=== PATIENT | female | born 1990 | race Caucasian/White ===

== ENCOUNTER → 2019-07-16 | Outpatient (REF) | payer OTHER, MEDICAID ==
[~2019-07-16] MED LIST: BUPR8SUB SL; GNP28TAB2 PO
== END ==
LOC: M LAB REF 13:11
PROVIDERS: ATTEND Advanced Practice Midwife
DX: Z34.83 Encounter for supervision of other normal pregnancy, third trimester (principal)

== ENCOUNTER → 2019-07-24 | Outpatient (CLI) | payer OTHER, MEDICAID | LOC: M SMT 15:44 | PROVIDERS: ATTEND Advanced Practice Midwife | DX: O09.213 Supervision of pregnancy with history of pre-term labor, third trimester (principal); Z3A.00 Weeks of gestation of pregnancy not specified ==

== ENCOUNTER 2019-08-13 23:48 | Inpatient (IN) | payer OTHER, MEDICAID ==
[~2019-08-13] VITALS: Ht 160 cm; Wt 62.6 kg
[2019-08-14] VITALS (9 sets, daily range): BP systolic 100–121; BP diastolic 52–68
[2019-08-14] MEDS ORDERED: MOM 30ML SUSPENSION UDC PO PRN (00:15)
[2019-08-14] MEDS ORDERED: DOCUSATE SODIUM 100 MG CAP PO PRN (00:15)
[2019-08-14] MEDS ORDERED: ACETAMINOPHEN TAB 650MG DOSE (2X325MG) PO PRN (00:15)
[2019-08-14] MEDS ORDERED: RHOGAM 300 MCG (1500 IU) INJ (J2790) IM SCH (00:15)
[2019-08-14] MEDS ORDERED: METHYLERGONOVINE MALEATE 0.2 MG TAB PO PRN (00:15)
[2019-08-14] MEDS ORDERED: DIBUCAINE 1% OINTMENT 30GM TOP PRN (00:15)
[2019-08-14] MEDS ORDERED: OXYTOCIN INJ 10 UNITS/ML VIAL (J2590) IM ONE (00:15)
[2019-08-14] MEDS ORDERED: IBUPROFEN 800 MG TAB PO PRN (00:15)
[2019-08-14] MEDS ORDERED: MEASLES,MUMPS,RUBELLA VACCINE INJ (MMR-II) (90707) SC SCH (00:15)
[2019-08-14] MEDS ORDERED: ANUSOL HC CREAM 30GM TOP PRN (00:15)
[2019-08-14] MEDS ORDERED: IBUPROFEN 600 MG TAB PO PRN (00:15)
[2019-08-14] MEDS ORDERED: ACETAMINOPHEN 500 MG TAB PO PRN (00:15)
[2019-08-14] MEDS ORDERED: GNP28TAB2 PO (02:11)
[2019-08-14] MEDS ORDERED: BUPR8SUB SL (02:15)
--- NOTE | 2019-08-14 04:38 | HPE ---
DATE OF ADMISSION: 08/13/2019 REASON FOR ADMISSION: Labor. HISTORY OF PRESENT ILLNESS: This patient is a 28-year-old, 6, para 3 who presents 38 weeks, 4 days estimated gestational age in active labor. She reports contractions throughout the day that have increased in intensity and frequency. She denies any vaginal bleeding or leakage. COURSE: 1. Her course has been complicated with a history of delivery at 34 weeks. 2. History of right leg deep vein thrombosis (DVT) during her last . 3. Substance abuse currently on Suboxone 8 mg three times a day. She is also late entry of care at 32 weeks. PAST MEDICAL HISTORY: 1. Substance abuse. 2. Left leg deep vein thrombosis (DVT). PAST SURGICAL HISTORY: Dilation and curettage. PAST OBSTETRICAL HISTORY: She is a 6, para 3. She has had two term vaginal deliveries and a 34-week delivery, which was complicated by her placenta abruption, as well as a left leg deep vein thrombosis (DVT). Her medications includes Suboxone, heparin. ALLERGIES: She has no known drug allergies. SOCIAL HISTORY: She is a current smoker. She denies any illicit drug use. PHYSICAL EXAMINATION: Her vital signs are stable. She is afebrile. General appearance: Well appearing, appears uncomfortable, contractions. Cervical exam: She was completely dilated and ruptured during examination to +1 station. LABORATORY: Her blood type O+, antibody screen is negative. Rubella is immune. RPR is nonreactive. Hepatitis surface antigen is negative. HIV is negative. Hepatitis C nonreactive. Chlamydia and gonorrhea screens were negative. She had a normal one hour glucose. She is Group B streptococcus (GBS) negative. ASSESSMENT: This patient is a 28-year-old 6, para 3, at 38 weeks, 4 days estimated gestational age in active labor. PLAN: 1. Admit to labor and delivery. 2. Anticipate precipitous vaginal delivery.
--- NOTE | 2019-08-14 04:44 | DN ---
DATE: 08/13/2019 TIME OF : 2349 GENDER: Male. APGARS: 8 and 9. WEIGHT: 6 pounds 4 ounces or 2840 grams. LACERATIONS: None. ESTIMATED BLOOD LOSS: 300 mL COUNTS: Five laparotomy sponges accounted for prior to and after delivery. ANESTHESIA: None. DELIVERY NOTE: On August 13, 2019 at 2349, this patient 28-year-old 6, now para 4, had a spontaneous vaginal delivery of a live born male infant, Apgars 8 and 9, weight was 2840 grams, 6 pounds 4 ounces. Head was delivered occiput anterior (OA) over intact perineum. There was a nuchal cord, which was manually reduced followed by delivery of shoulder and corpus. was handed to mom with a good cry. Cord was clamped x2, was cut by the father of baby under my direction. Placenta was then drained and delivered grossly intact. A premixed bag of 500 mL of normal saline with 30 units of Pitocin was then bolused along with uterine massage. The uterus was firm. On inspection, cervix, vagina and perineum were grossly intact and hemostatic. Mom and baby went to recovery in stable condition.
[2019-08-14] MEDS: ENOXAPARIN 40 MG/0.4 ML SYRINGE (J1650) SC SCH (06:13)
[2019-08-14] MEDS: PRENATAL VITAMINS CHEWABLE TABLET PO SCH (09:35)
[2019-08-14] MEDS: NICOTINE 14 MG/24 HR TRANSDERMAL TD SCH (09:35)
--- NOTE | 2019-08-14 11:21 | IPNPDOC ---
Text Note Date of Service The patient was seen on 08/14/19. NOTE Day 1 S/p ; complicated by suboxone use, late entry to care, precipitous delivery S: pain well controlled, lochia and bleeding decreasing, voiding spontaneously, ambulating without assistance, tolerating regular diet. Formula feeding. O: vitals stable Heart: RRR, no murmurs Lungs: CTA BL Abd: Fundus firm at U-2cm Ext: no edema, non tender, negative Delmy's bilaterally A/P: 28 yo G6 now P4. day 1 s/p . Hemodynamically stable, afebrile, good pain control. Recovering well. -Routine care and advancement. -Anticipate discharge tomorrow VS,Fishbone, I+O VS, Fishbone, I+O Vital Signs Date Time Temp Pulse Resp B/P (MAP) Pulse Ox O2 Delivery O2 Flow Rate FiO2 08/14/19 05:52 98.3 82 16 115/62 (79) 98 I&O- Last 24 Hours up to 6 AM 08/14/19 05:59 Output Total 600 ml Balance -600 ml GME ATTESTATION GME ATTESTATION My faculty preceptor for this patient encounter was physically present during the encounter and was fully available. All aspects of the patient interview, e xamination, medical decision making process, and medical care plan development were reviewed and approved by the faculty preceptor. The faculty preceptor is aware and concurs with the plan as stated in the body of this note and will attest to such by his/her cosignature. OSCAR VARMA DO Aug 14, 2019 11:21
[2019-08-15] MEDS: ENOXAPARIN 40 MG/0.4 ML SYRINGE (J1650) SC SCH (05:56)
[2019-08-15 06:00] VITALS: BP 107/65
[2019-08-15] MEDS ORDERED: INFLUENZA QUADRIVALENT PF VACCINE 0.5ML SYRINGE (90686) IM ONE (09:00)
[2019-08-15] MEDS ORDERED: ADACEL/BOOSTRIX VACCINE (DIPHTH/PERTUSS/ACELL/TETANUS)0.5ML SYR (90715) IM ONE (09:00)
[2019-08-15] MEDS: NICOTINE 14 MG/24 HR TRANSDERMAL TD SCH (09:45)
[2019-08-15] MEDS: PRENATAL VITAMINS CHEWABLE TABLET PO SCH (09:45)
== END 2019-08-15 12:15 | disposition home or self-care (01) | DRG 560 ==
LOC: M LDO 23:48 → M LDI 23:50 → UNDOADMIN 08-14 00:04 → M LDI 08-14 03:43 → M OBS 08-14 03:43
PROVIDERS: ADMIT Obstetrics & Gynecology; ATTEND Obstetrics & Gynecology
PROC: 10E0XZZ Delivery of Products of Conception, External Approach (ICD-10-PCS; principal; 2019-08-13)
DX: O99.334 Smoking (tobacco) complicating childbirth (principal); Z3A.38 38 weeks gestation of pregnancy; Z37.0 Single live birth; O62.3 Precipitate labor; O69.81X0 Labor and delivery complicated by cord around neck, without compression, not applicable or unspecified; F17.200 Nicotine dependence, unspecified, uncomplicated

== ENCOUNTER → 2021-10-25 | Outpatient (CLI) | payer OTHER, MEDICAID | LOC: M PLALAB 10:48 | PROVIDERS: ATTEND Obstetrics & Gynecology | DX: Z86.718 Personal history of other venous thrombosis and embolism (principal) ==

== ENCOUNTER → 2021-11-22 | Outpatient (CLI) | payer OTHER ==
[2021-11-22 15:34] LABS: GC DNA AMPLIFICATION NEGATIVE (NEGATIVE)
== END ==
LOC: M PLALAB 10:47
PROVIDERS: ATTEND Obstetrics & Gynecology
DX: Z86.718 Personal history of other venous thrombosis and embolism (principal)

== ENCOUNTER → 2021-11-22 | Outpatient (CLI) | payer OTHER | LOC: M PLALAB 10:46 | PROVIDERS: ATTEND Obstetrics & Gynecology | DX: Z34.82 Encounter for supervision of other normal pregnancy, second trimester (principal) ==

== ENCOUNTER → 2022-02-23 | Outpatient (CLI) | payer OTHER ==
[2022-02-23 13:46] LABS: HEMOGLOBIN 11.1 g/dl (12.0-15.5); MEAN CORPUSCULAR HEMOGLOBIN 28.2 pg (27.0-33.0); MEAN CORPUSCULAR HGB CONC 32.6 g/dl (32.0-36.5); MEAN CORPUSCULAR VOLUME 86.5 fl (80.0-96.0); PLATELET COUNT, AUTOMATED 172 10^3/uL (150-450); RED BLOOD COUNT 3.93 10^6/uL (4.00-5.40); WHITE BLOOD COUNT 8.8 10^3/uL (4.0-10.0)
[2022-02-23 15:18] LABS: GC DNA AMPLIFICATION NEGATIVE (NEGATIVE)
== END ==
LOC: M PLALAB 10:25
PROVIDERS: ATTEND Obstetrics & Gynecology
DX: Z34.92 Encounter for supervision of normal pregnancy, unspecified, second trimester (principal); Z3A.23 23 weeks gestation of pregnancy

== ENCOUNTER 2022-05-01 12:11 | Inpatient (IN) | payer OTHER ==
[2022-05-01] VITALS (9 sets, daily range): BP systolic 109–144; BP diastolic 60–82
[~2022-05-01] VITALS: Ht 157.5 cm; Wt 66.7 kg
[2022-05-01] MEDS ORDERED: ENOX40IN3 (12:24)
[2022-05-01] MEDS ORDERED: HOME MED LIST COMPLETE! XX SCH (12:25)
[2022-05-01] MEDS ORDERED: PENICILLIN G POTASSIUM IV 5 MU in D5W MINI-BAG PLUS 100 ML IV STA ×2 (12:59→13:14)
[2022-05-01] MEDS ORDERED: OXYTOCIN DRIP 30 UNITS in IV 1 EA IV SCH ×2 (13:00→21:25)
[2022-05-01] MEDS ORDERED: LIDOCAINE 1% MDV 20ML VIAL INFIL PRN (13:00)
[2022-05-01] MEDS ORDERED: TRANEXAMIC ACID INJection 1,000 MG in NS 100 ML IV PRN (13:00)
[2022-05-01] MEDS ORDERED: METHYLERGONOVINE MALEATE 0.2 MG/ML VIAL (J2210) IM PRN (13:00)
[2022-05-01] MEDS ORDERED: LR 1,000 ML IV SCH (13:00)
[2022-05-01 15:38] LABS: HEMATOCRIT 32.8 % (36.0-47.0); HEMOGLOBIN 10.2 g/dl (12.0-15.5); MEAN CORPUSCULAR HGB CONC 31.1 g/dl (32.0-36.5); MEAN CORPUSCULAR VOLUME 86.8 fl (80.0-96.0); PLATELET COUNT, AUTOMATED 118 10^3/uL (150-450); RED BLOOD COUNT 3.78 10^6/uL (4.00-5.40); WHITE BLOOD COUNT 5.2 10^3/uL (4.0-10.0)
[2022-05-01] MEDS ORDERED: PENICILLIN G POTASSIUM IV 2.5 MU in IV 1 EA IV SCH (17:00)
[2022-05-01] MEDS: PENICILLIN G POTASSIUM IV 2.5 MU in IV 1 EA IV SCH ×2 (18:04→19:42)
[2022-05-01] MEDS ORDERED: **PENDING PCN ENTRY XX SCH (21:00)
[2022-05-01 21:22] LABS: CORD GAS ABE A -3.9; CORD GAS O2 SAT A 41.2 %; CORD GAS PCO2 A 53.9 mmHg; CORD GAS PH A 7.267 UNITS; CORD GAS PO2 A 18.6 mmHg; CORD GAS SBC A 19.8 MEQ/L; CORD GAS TCO2 A 25.7 MEQ/L
[2022-05-01 21:24] LABS: CORD GAS HCO3 V 21.6 MEQ/L; CORD GAS O2 SAT V 76.9 %; CORD GAS PCO2 V 37.4 mmHg; CORD GAS PH V 7.379 UNITS; CORD GAS PO2 V 29.8 mmHg; CORD GAS SBC V 21.5 MEQ/L; CORD GAS TCO2 V 22.7 MEQ/L
[2022-05-01] MEDS ORDERED: DOCUSATE SODIUM 100MG CAPSULE PO PRN (21:25)
[2022-05-01] MEDS ORDERED: RHOGAM 300 MCG (1500 IU) INJ (J2790) IM SCH (21:25)
[2022-05-01] MEDS ORDERED: MOM 30ML SUSPENSION UDC PO PRN (21:25)
[2022-05-01] MEDS ORDERED: IBUPROFEN 800 MG TAB PO PRN (21:25)
[2022-05-01] MEDS ORDERED: ACETAMINOPHEN 500 MG TAB PO PRN (21:25)
[2022-05-01] MEDS ORDERED: DIBUCAINE 1% OINTMENT 30GM TOP PRN (21:25)
[2022-05-01] MEDS ORDERED: IBUPROFEN 600MG TAB PO PRN (21:25)
[2022-05-01] MEDS ORDERED: ACETAMINOPHEN TAB 650MG DOSE (2X325MG) PO PRN (21:25)
[2022-05-01] MEDS ORDERED: METHYLERGONOVINE MALEATE 0.2 MG TAB PO PRN (21:25)
[2022-05-02 06:10] VITALS: BP 113/55
[2022-05-02] MEDS: PRENATAL VITAMINS CHEWABLE TABLET PO SCH (10:00)
[2022-05-02] MEDS: ENOXAPARIN 40MG/0.4ML SYRINGE (J1650 PER 10MG) SC SCH (10:00)
[2022-05-02 18:00] VITALS: BP 122/75
[2022-05-03 06:00] VITALS: BP 108/72
[2022-05-03] MEDS: PRENATAL VITAMINS CHEWABLE TABLET PO SCH (08:43)
[2022-05-03] MEDS: ENOXAPARIN 40MG/0.4ML SYRINGE (J1650 PER 10MG) SC SCH (08:43)
[2022-05-03] MEDS ORDERED: MEASLES,MUMPS,RUBELLA VACCINE INJ (MMR-II) (90707) SC ONE (09:00)
== END 2022-05-03 11:17 | disposition home or self-care (01) | DRG 560 ==
LOC: M LDO 12:11 → M LDI 12:41 → M OBS 23:25
PROVIDERS: ADMIT Obstetrics & Gynecology; ATTEND Obstetrics & Gynecology
PROC: 10E0XZZ Delivery of Products of Conception, External Approach (ICD-10-PCS; principal; 2022-05-01)
DX: O42.013 Preterm premature rupture of membranes, onset of labor within 24 hours of rupture, third trimester (principal); O69.81X0 Labor and delivery complicated by cord around neck, without compression, not applicable or unspecified; Z3A.36 36 weeks gestation of pregnancy; Z37.0 Single live birth; Z86.718 Personal history of other venous thrombosis and embolism; Z79.01 Long term (current) use of anticoagulants